=== PATIENT | female | born 1940 | race Caucasian/White ===

== ENCOUNTER 2017-02-25 10:50 | Inpatient (IN) ==
[2017-02-25] MEDS ORDERED: *HR* Heparin 5,000 UNIT/ML VIAL IVP ONE (11:07)
[2017-02-25] MEDS ORDERED: *HR* Heparin 5,000 UNIT/ML VIAL IVP PRN ×3 (11:07→15:48)
--- NOTE | 2017-02-25 11:14 | Emergency Department Note ---
Disposition Clinical Impression: Atrial fibrillation with RVR, Cardiac enzymes elevated, Renal insufficiency Disposition: Admitted As Inpatient Condition: Fair Referrals: Kingsley Guerrero DO [Primary Care Provider] - Forms: ED Satisfaction Letter Time of Disposition: 12:20 Arrhythmia/Palpitations HPI - General Chief Complaint: ED Arrhythmia/Palpitations Stated Complaint: high heart rate/ swelling Time Seen by Provider: 02/25/17 11:03 Source: patient Limitations: no limitations Nursing Notes Reviewed: Yes Vital Signs Reviewed: Yes - Related Data Allergies Allergy/AdvReac Type Severity Reaction Status Date / Time amlodipine [From Norvasc] AdvReac See Verified 02/25/17 10:58 Comments ezetimibe [From Zetia] AdvReac See Verified 02/25/17 10:58 Comments Past Medical History - Past Medical History Medical history: Reports: CHF, hyperlipidemia, hypertension Psychiatric history: Reports: no psych history - Social History Smoking Status: Never smoker Smokeless Tobacco Status: No Alcohol use: Reports: none Drug use: Reports: none Physical Exam - General Limitations: no limitations General appearance: alert, in no apparent distress Course - Reevaluation(s) Reevaluation #1: 76-year-old with mitral regurgitation who comes in with acute onset A. fib. With rapid ventricular response. Patient was seen by cardiology sent here for heparin and Cardizem drip. Patient's troponin did come back positive at 0.19. Patient does have renal insufficiency which is stable compared to her previous value. Patient will be admitted for further evaluation and treatment. Time: 12:18 - Consultations Consultation #1: Discussed with , discussed troponin. Agrees with heparin and Cardizem. Time: 12:17 Consultation #2: Discussed with , admit. Time: 12:18 Vital Signs Temperature 97.5 F L 02/25/17 10:51 Pulse Rate 148 02/25/17 10:51 Respiratory Rate 18 02/25/17 10:51 Blood Pressure 91/50 02/25/17 10:51 O2 Sat by Pulse Oximetry 95 02/25/17 10:51 Temperature 97.5 F L 02/25/17 10:51 Pulse Rate 140 02/25/17 11:45 Respiratory Rate 16 02/25/17 11:45 Blood Pressure 122/77 02/25/17 11:45 O2 Sat by Pulse Oximetry 98 02/25/17 11:45 Oxygen Delivery Oxygen Delivery Room Air Arrhythmia/Palpitations - Lab Data Result diagrams: 02/25/17 11:12 02/25/17 11:12 Lab Results 02/25/17 02/25/17 02/25/17 Range/Units 11:12 11:12 11:12 WBC 7.6 (4.3-11.1) K/mcL RBC 3.70 L (3.82-4.97) M/mcL Hgb 10.3 L (11.5-15.4) g/dL Hct 32.8 L (35.3-44.9) % MCV 88.6 (83.0-100.0) fL MCH 27.8 L (28.0-33.3) pg MCHC 31.4 L (31.6-35.5) g/dL RDW 14.8 H (11.5-14.5) % Plt Count 148 (140-400) K/mcL MPV 12.1 (9.4-12.4) fL Immature Gran % 0.3 (0-4) % Seg Neutrophils % 82.6 % Lymphocytes % 9.4 % Monocytes % 7.3 % Eosinophils % 0.1 % Basophils % 0.3 % Neutrophils # 6.3 (1.6-8.9) K/mcL Lymphocytes # 0.7 (0.6-4.6) K/mcL Monocytes # 0.6 (0.0-1.3) K/mcL Eosinophils # 0.0 (0.0-0.6) K/mcL Basophils # 0.0 (0.0-0.2) K/mcL PT 14.3 H (9.4-12.1) Seconds INR 1.3 APTT 24.3 L (26.0-36.0) Seconds Sodium 136 (136-145) mEq/L Potassium 4.4 (3.5-4.5) mEq/L Chloride 102 (98-109) mEq/L Carbon Dioxide 22 (19-29) mEq/L BUN 56 H (7-20) mg/dL Creatinine 1.76 H (0.57-1.11) mg/dL Est GFR ( Amer) 34 L (> 60) Est GFR (Non-Af Amer) 28 L (> 60) BUN/Creatinine Ratio 32 H (6-26) Glucose 107 H (70-99) mg/dL Calculated Osmolality 298 (280-300) Calcium 9.2 (8.6-10.8) mg/dL Troponin I (0-0.03) ng/mL TSH 4.151 (0.350-4.840) mcIU/mL 02/25/17 Range/Units 11:12 WBC (4.3-11.1) K/mcL RBC (3.82-4.97) M/mcL Hgb (11.5-15.4) g/dL Hct (35.3-44.9) % MCV (83.0-100.0) fL MCH (28.0-33.3) pg MCHC (31.6-35.5) g/dL RDW (11.5-14.5) % Plt Count (140-400) K/mcL MPV (9.4-12.4) fL Immature Gran % (0-4) % Seg Neutrophils % % Lymphocytes % % Monocytes % % Eosinophils % % Basophils % % Neutrophils # (1.6-8.9) K/mcL Lymphocytes # (0.6-4.6) K/mcL Monocytes # (0.0-1.3) K/mcL Eosinophils # (0.0-0.6) K/mcL Basophils # (0.0-0.2) K/mcL PT (9.4-12.1) Seconds INR APTT (26.0-36.0) Seconds Sodium (136-145) mEq/L Potassium (3.5-4.5) mEq/L Chloride (98-109) mEq/L Carbon Dioxide (19-29) mEq/L BUN (7-20) mg/dL Creatinine (0.57-1.11) mg/dL Est GFR ( Amer) (> 60) Est GFR (Non-Af Amer) (> 60) BUN/Creatinine Ratio (6-26) Glucose (70-99) mg/dL Calculated Osmolality (280-300) Calcium (8.6-10.8) mg/dL Troponin I 0.19 H* (0-0.03) ng/mL TSH (0.350-4.840) mcIU/mL Critical Care Time Critical Care Time: Yes Total Critical Care Time: 30 Attestation: The high probability of a clinically significant, sudden or life threatening deterioration of the [cardiovascular] system(s) required my full and direct attention, intervention and personal management. The aggregate critical care time was [30] minutes. This time is in addition to time spent performing reported procedures but includes the following: [x] Data Review and interpretation [x] Patient assessment and monitoring of vital signs [x] Documentation [x] Medication orders and management
[2017-02-25 11:26] LABS: Basophils % 0.3 %; Eosinophils % 0.1 %; Hematocrit 32.8 % (35.3-44.9); Hemoglobin 10.3 g/dL (11.5-15.4); Immature Granulocytes % 0.3 % (0-4); Lymphocytes # 0.7 K/mcL (0.6-4.6); Lymphocytes % 9.4 %; Mean Corpuscular HGB Conc 31.4 g/dL (31.6-35.5); Mean Corpuscular Hemoglobin 27.8 pg (28.0-33.3); Mean Corpuscular Volume 88.6 fL (83.0-100.0); Mean Platelet Volume 12.1 fL (9.4-12.4); Monocytes # 0.6 K/mcL (0.0-1.3); Monocytes % 7.3 %; Neutrophils # 6.3 K/mcL (1.6-8.9); Platelet Count 148 K/mcL (140-400); Red Cell Distribution Width 14.8 % (11.5-14.5); Segmented Neutrophils % 82.6 %
[2017-02-25 11:31] LABS: INR 1.3; Prothrombin Time 14.3 Seconds (9.4-12.1)
[2017-02-25 11:33] LABS: Activated Partial Thrombo Time 24.3 Seconds (26.0-36.0)
[2017-02-25 11:34] LABS: Calcium 9.2 mg/dL (8.6-10.8); Potassium 4.4 mEq/L (3.5-4.5)
[2017-02-25] MEDS: Heparin 25,000 UNIT/500 ML D5W 25,000 UNIT/500 ML MLS IVC SCH (11:45)
[2017-02-25 11:56] LABS: Thyroid Stimulating Hormone 4.151 mcIU/mL (0.350-4.840)
[2017-02-25] MEDS ORDERED: Naloxone 0.4 MG/ML INJ IVP PRN (12:41)
[2017-02-25] MEDS ORDERED: Acetaminophen 325 MG TABLET PO PRN (12:41)
--- NOTE | 2017-02-25 13:25 | Internal Med History&Physical ---
Date of Encounter: 02/25/17 Time of Encounter: 13:22 Assessment and Plan (1) Atrial fibrillation with RVR Current visit: Yes Status: Acute New onset, was seen by case hardener on day of admission and found to be in A. fib with RVR. Heart rates in 130s in the ED, Cardizem drip and heparin drip started. TTE 01/2017 with EF 55% and severely dilated left atrium. TSH normal, troponin 0.19. Discussed with cardiology and patient has known mitral regurg, possible LOBITO tomorrow with possible LHC this admission to evaluate for ischemic etiology. Continue Cardizem, heparin drip. Cardiology following (2) Renal insufficiency Current visit: Yes Status: Acute Cr 1.7; baseline normal, creatinine has been trending up since 02/12/2017. Suspect multifactorial with diuretic induced, possible cardiorenal syndrome. Holding on diuresis and fluids at this time. Nephrology consult, renal ultrasound pending (3) Diastolic CHF Current visit: Yes Status: Acute TTE 01/2017 with EF 55%, and evidence of diastolic dysfunction. Was on by mouth Lasix outpatient with no proven noted in lower extremity edema. Chest x-ray with evidence of CHF and bilateral pleural effusions. Discussed with cardiology and will hold on repeating echo at this time. Also holding on diuresis with worsening STEPHEN. Cardiology consulted Qualifiers: Congestive heart failure chronicity: acute on chronic Qualified Code(s): I50.33 - Acute on chronic diastolic (congestive) heart failure (4) Cardiac enzymes elevated Current visit: Yes Status: Acute troponin 0.19 and in the setting of STEPHEN, a-fib with RVR. Denies chest pain. EKG with A. fib RVR. Cycle troponin, cardiology consult (5) Essential hypertension Current visit: Yes Status: Acute per hx but not taking BP medications. BP stable in ED. Monitor BP and initiate antihypertensive if needed. (6) DVT prophylaxis Current visit: Yes Status: Acute heparin gtt Internal Medicine - H&P: HPI History of present illness: Ms. Lazo is a 76 year old female Past Med Surg Social Fam HX - Past Medical History Medical history: CHF, hyperlipidemia, hypertension Psychiatric history: no psych history - Social History Smoking Status: Never smoker Smokeless Tobacco Status: No Alcohol use: none Drug use: none Internal Medicine - H&P: Meds Aspirin 81 mg PO DAILY 02/25/17 [History] Furosemide [Lasix] 40 mg PO DAILY 02/25/17 [History] Potassium Chloride [Klor-Con 10] 10 meq PO DAILY 02/25/17 [History] Ramipril [Altace] 10 mg PO QPM 02/25/17 [History] Ramipril [Altace] 20 mg PO QAM 02/25/17 [History] Rosuvastatin [Crestor] 40 mg PO HS 02/25/17 [History] Allergies amlodipine [From Norvasc] Adverse Reaction (Verified 02/25/17 10:58) See Comments swelling/leg cramps ezetimibe [From Zetia] Adverse Reaction (Verified 02/25/17 10:58) See Comments swelling/leg cramps All Systems PM: A 10-system review of systems was performed and is negative for pertinent findings except as documented above in the HPI. - Constitutional Vitals: Temp Pulse Resp BP Pulse Ox 97.5 F L 140 16 122/77 98 02/25/17 10:51 02/25/17 11:45 02/25/17 11:45 02/25/17 11:45 02/25/17 11:45 Internal Med - H&P Results - Labs CBC & Chem 7: 02/25/17 11:12 02/25/17 11:12 Labs: Short CBC 02/25/17 Range/Units 11:12 WBC 7.6 (4.3-11.1) K/mcL Hgb 10.3 L (11.5-15.4) g/dL Hct 32.8 L (35.3-44.9) % Plt Count 148 (140-400) K/mcL Neutrophils # 6.3 (1.6-8.9) K/mcL BMP 02/25/17 11:12 Sodium 136 Potassium 4.4 Chloride 102 Carbon Dioxide 22 BUN 56 H Creatinine 1.76 H Glucose 107 H Calcium 9.2 Cardiac Enzymes 02/25/17 Range/Units 11:12 Troponin I 0.19 H* (0-0.03) ng/mL - Impressions ITS Impressions Chest X-Ray 02/25/17 11:04 IMPRESSION: Findings suggest congestive heart failure D/ / Armaan Glez MD / Armaan Glez MD Interpreting Provider: Armaan Glez MD
--- NOTE | 2017-02-25 13:37 | Internal Med History&Physical ---
<Kent,Jessica J - Last Filed: 02/25/17 13:35> Date of Encounter: 02/25/17 Time of Encounter: 13:35 Assessment and Plan (1) Atrial fibrillation with RVR Current visit: Yes Status: Acute New onset, was seen by medical lead on day of admission and found to be in A. fib with RVR. Heart rates in 130s in the ED, Cardizem drip and heparin drip started. TTE 01/2017 with EF 55% and severely dilated left atrium. TSH normal, troponin 0.19. Discussed with cardiology and patient has known mitral regurg, possible LOBITO tomorrow with possible LHC this admission to evaluate for ischemic etiology. Continue Cardizem, heparin drip. Cardiology following (2) Renal insufficiency Current visit: Yes Status: Acute (2) Renal insufficiency Current visit: Yes Status: Acute Cr 1.7; baseline normal, but Cr has been trending up since 02/12/2017. Suspect multifactorial with diuretic induced, possible cardiorenal syndrome. Holding on diuresis and fluids at this time. Nephrology consult, renal ultrasound pending (3) Diastolic CHF Current visit: Yes Status: Acute TTE 01/2017 with EF 55%, and evidence of diastolic dysfunction. Was on by mouth Lasix outpatient with no proven noted in lower extremity edema. Chest x-ray with evidence of CHF and bilateral pleural effusions. Discussed with cardiology and will hold on repeating echo at this time. Also holding on diuresis with worsening STEPHEN. Cardiology consulted Qualifiers: Congestive heart failure chronicity: acute on chronic Qualified Code(s): I50.33 - Acute on chronic diastolic (congestive) heart failure (4) Cardiac enzymes elevated Current visit: Yes Status: Acute troponin 0.19 and in the setting of STEPHEN, a-fib with RVR. Denies chest pain. EKG with A. fib RVR. Cycle troponin, cardiology consult (5) Essential hypertension Current visit: Yes Status: Acute per hx but not taking BP medications. BP stable in ED. Monitor BP and initiate antihypertensive if needed. (6) DVT prophylaxis Current visit: Yes Status: Acute heparin gtt Internal Medicine - H&P: HPI Chief complaint: leg swelling Admitted From: Home History of present illness: Ms. Lazo is a 76 year old female with past medical history hypertension, hyperlipidemia and diastolic dysfunction who was seen a medical lead office on day of admission. She was found to be in A. fib with RVR therefore she was sent to the emergency room. She was started on Cardizem and heparin drip and admitted for further workup and treatment. Information obtained from chart review and patient report. Patient says she has Been having lower extremity edema for the past 2 or 3 weeks, has been following cardiology for outpatient workup. She was taking up to 60 mg of by mouth Lasix at home without noticing any difference in her lower extremity edema. She denies shortness of breath no chest pain or cough. Says she has felt intermittent palpitations, has not been diagnosed with A. fib in the past. No lightheadedness or dizziness. Past Med Surg Social Fam HX - Past Medical History Medical history: CHF, hyperlipidemia, hypertension Psychiatric history: no psych history - Past Surgical History Surgical History: non-contributory - Social History Smoking Status: Never smoker Smokeless Tobacco Status: No Alcohol use: none Drug use: none - Family History Mother Hx Family Endocrine Disorder: Yes (diabetes) Internal Medicine - H&P: Meds Aspirin 81 mg PO DAILY 02/25/17 [History] Furosemide [Lasix] 40 mg PO DAILY 02/25/17 [History] Potassium Chloride [Klor-Con 10] 10 meq PO DAILY 02/25/17 [History] Ramipril [Altace] 10 mg PO QPM 02/25/17 [History] Ramipril [Altace] 20 mg PO QAM 02/25/17 [History] Rosuvastatin [Crestor] 40 mg PO HS 02/25/17 [History] Allergies amlodipine [From Norvasc] Adverse Reaction (Verified 02/25/17 10:58) See Comments swelling/leg cramps ezetimibe [From Zetia] Adverse Reaction (Verified 02/25/17 10:58) See Comments swelling/leg cramps All Systems PM: A 10-system review of systems was performed and is negative for pertinent findings except as documented above in the HPI. - Constitutional Constitutional: no chills, no fever(s), no night sweats - EENT Eyes: no change in vision, no discharge, no pain, no photophobia Ears: no ear discharge, no ear pain, no tinnitus Nose, mouth and throat: no dysphagia, no nasal discharge, no neck pain, no sore throat - Cardiovascular Cardiovascular ROS IM: edema, palpitations, no chest pain, no diaphoresis, no dyspnea, no lightheadedness, no syncope - Respiratory Respiratory: no cough, no dyspnea, no wheezing, no excessive phlegm production - Gastrointestinal Gastrointestinal: no abdominal pain, no diarrhea, no hematemesis, no hematochezia, no melena, no nausea, no vomiting - Genitourinary Genitourinary: no change in urinary stream, no dysuria, no flank pain, no hematuria - Musculoskeletal Musculoskeletal ROS IM: no numbness, no tingling - Integumentary Integumentary IM: no rash, no unusual bruising - Neurological Neurological ROS: no confusion, no convulsions, no focal weakness, no numbness, no tingling, no tremor(s) - Hematologic/Lymphatic Hematologic/Lymphatic: no easy bruising - Constitutional Vitals: Temp Pulse Resp BP Pulse Ox 97.5 F L 138 16 115/83 97 02/25/17 10:51 02/25/17 12:30 02/25/17 12:30 02/25/17 12:30 02/25/17 12:30 General appearance: Present: A&O X 3, pleasant, no acute distress - Head Head exam: Present: atraumatic, normocephalic - Eye Eye exam: Present: PERRL, conjuntiva pink, sclera anicteric Pupils: Present: PERRL - Neck Neck exam general surgery: Present: supple, trachea midline. Absent: lymphadenopathy - Respiratory Respiratory exam: Present: CTAB. Absent: accessory muscle use, rales, rhonchi, wheezes - Cardiovascular Cardiovascular exam: Present: RRR, +S1, +S2. Absent: diastolic murmur, gallop, rubs, systolic murmur - GI/Abdominal GI/Abdominal exam: Present: normal bowel sounds, soft, no peritoneal signs. Absent: distended, tenderness - Extremities Exam Extremities exam: Present: warm, radial pulses palpable and symetrical. Absent : calf tenderness, cyanotic, pedal edema - Neurological Exam Neurological exam: Present: CN II-XII intact, oriented X3, no focal deficits. Absent: pronater drift, facial droop, speech deficit - Skin Skin exam: Present: dry, intact Internal Med - H&P Results - Labs CBC & Chem 7: 02/25/17 11:12 02/25/17 11:12 <Ameda,Srujan - Last Filed: 02/25/17 14:56> Date of Encounter: 02/25/17 Time of Encounter: 14:40 Internal Medicine - H&P: HPI History of present illness: Ms. Lazo is a 76 year old female All Systems PM: A 10-system review of systems was performed and is negative for pertinent findings except as documented above in the HPI. - Constitutional Vitals: Temp Pulse Resp BP Pulse Ox 97.9 F 130 16 109/83 96 02/25/17 14:13 02/25/17 14:13 02/25/17 14:13 02/25/17 14:13 02/25/17 14:13 Internal Med - H&P Results - Labs CBC & Chem 7: 02/25/17 11:12 02/25/17 11:12 - Attending Attestation I examined this patient and my medical decision-making was reviewed with the nurse practitioner. I agree with the documented history of present illness, review of systems, past medical, surgical social and family histories and examination findings, disposition and treatment plan as described above except to any changes set forth below. 76-year-old female patient with history of hypertension, hyperlipidemia who was visiting with her medical lead for the first time for follow-up regarding abnormal 2-D echocardiogram findings was found to be in rapid atrial fibrillation and was sent to the ER. She has been having occasional palpitations along with shortness of breath especially with exertion and some pedal edema. She had a 2-D echocardiogram done in January which showed severe mitral regurgitation. She denies any chest pain. Does not recollect having any issues with heart rhythm previously. Has had left carotid endarterectomy for carotid stenosis in the past but no episodes of TIA or CVA. On examination , patient has tachycardia with an irregularly irregular rhythm. Pansystolic murmur. Bilateral pedal edema present. Paroxysmal A. fib with RVR-new onset: Will treat with intravenous Cardizem. Cardiology evaluation. Trend troponins. Mild troponin elevation likely due to A. fib with STEPHEN. With IV heparin. Acute kidney injury: Patient has had normal renal function in September of this year but currently is creatinine is 1.76. Has been elevated since the beginning of this month. Was on Lasix 60 mg recently. But quit taking as it did not improve her symptoms. History of nephrolithiasis. We will get renal ultrasound. Nephrology consultation. Essential hypertension: Monitor blood pressure. Resume home medications. Severe mitral regurgitation with severely dilated left atrium: Cardiology consulted. We will follow recommendations. Plan for LOBITO.
--- NOTE | 2017-02-25 15:01 | Cardiology Consult Note ---
Date of Encounter: 02/25/17 Time of Encounter: 15:30 Assessment and Plan (1) Atrial fibrillation with RVR Current Visit: Yes Status: Acute Out-pt EKG shows atrial fibrillation with RVR. HR 149 bpm. New diagnosis. Reports palpitations over 1-2 weeks. On cardizem and heparin gtt. Titrate heparin as needed. Continue heparin for now until after possible procedures. CHADS VASc=3. Will need to discuss coumadin further after LHC completed. (2) Severe mitral regurgitation Current Visit: Yes Status: Acute Echocardiogram 01/27/17: LVEF 55%. Moderate LVH Abnormal diastolic function with severely elevated filling pressures. Normal right ventricular size and function. Severely dilated left atrium with elevated pressures (bowing of IAS to right). Severe wrap around eccentric mitral regurgitation. Mild aortic regurgitation. Moderate tricuspid regurgitation. Severe pulmonary hypertension. A pleural effusion is present. Plan for LOBITO and LHC once heart rate and fluid status improves for further evaluation. I discussed procedures with patient and daughters. They agree with plan. (3) Cardiac enzymes elevated Current Visit: Yes Status: Acute Mild troponin elevation at 0.19 in the setting of CHF and atrial fibrillation with RVR. Likely demand ischemia. (4) Diastolic CHF Current Visit: Yes Status: Acute Acute diastolic /valvular CHF. Echocardiogram 01/27/17: LVEF 55%. Moderate LVH Abnormal diastolic function with severely elevated filling pressures. Normal right ventricular size and function. Severely dilated left atrium with elevated pressures (bowing of IAS to right). Severe wrap around eccentric mitral regurgitation. Mild aortic regurgitation. Moderate tricuspid regurgitation. Severe pulmonary hypertension. A pleural effusion is present. CXR shows CHF. BNP 1447. Fluid overload on exam. Start IV lasix. Monitor BMP. Kidney function will likely improve with diuresis. Strict I&O and daily weight. Low sodium diet. Qualifiers: Congestive heart failure chronicity: acute on chronic Qualified Code(s): I50.33 - Acute on chronic diastolic (congestive) heart failure Discussion w patient/family: The assessment and plan as outlined above was discussed with the patient and/or family members who expressed understanding and agreement. All questions were answered. Thank you for involving us in the care of your patient. Please call with any questions. History of Present Illness Consult date: 02/25/17 Requesting physician: Yulissa Lewis Consult reason: CHF, Severe mitral regurgitation, new onset afib Chief complaint: SOB History of present illness: Ms. Lazo is a 76 year old female sent from [facility] to the ER for new onset atrial fibrillation with RVR, HR 140, and CHF. Recent TTE completed showed severe wrap around eccentric mitral regurgiation. EF 55%. Initial work- up included chest x-ray that shows CHF. [id number], troponin 0.19. STEPHEN since 2016. Creatinine 1.76 today. She c/o SOB and BLE increasing over one week despite taking lasix at home. Admits to palpitations. PMH of Echocardiogram 01/27/17: LVEF 55%. Moderate LVH Abnormal diastolic function with severely elevated filling pressures. Normal right ventricular size and function. Severely dilated left atrium with elevated pressures (bowing of IAS to right). Severe wrap around eccentric mitral regurgitation. Mild aortic regurgitation. Moderate tricuspid regurgitation. Severe pulmonary hypertension. A pleural effusion is present. Past Med Surg Social Fam HX - Past Medical History Medical history: CHF, hyperlipidemia, hypertension Psychiatric history: no psych history - Past Surgical History Surgical History: non-contributory - Social History Smoking Status: Never smoker Smokeless Tobacco Status: No Alcohol use: none Drug use: none - Family History Mother Hx Family Endocrine Disorder: Yes (diabetes) Father Living Status: Age at : 58 Cause of : [place] Medications and Allergies Aspirin 81 mg PO DAILY 02/25/17 [History] Furosemide [Lasix] 40 mg PO DAILY 02/25/17 [History] Potassium Chloride [Klor-Con 10] 10 meq PO DAILY 02/25/17 [History] Ramipril [Altace] 10 mg PO QPM 02/25/17 [History] Ramipril [Altace] 20 mg PO QAM 02/25/17 [History] Rosuvastatin [Crestor] 40 mg PO HS 02/25/17 [History] Allergies amlodipine [From Norvasc] Adverse Reaction (Verified 02/25/17 10:58) See Comments swelling/leg cramps ezetimibe [From Zetia] Adverse Reaction (Verified 02/25/17 10:58) See Comments swelling/leg cramps All Systems Review: A 10-system review of systems was performed and is negative for pertinent findings except as documented above in the HPI. Physical Examination Vital Signs, Last 4 Hours Temp Pulse Resp BP Pulse Ox 02/25/17 14:13 97.9 F 130 16 109/83 96 02/25/17 13:38 16 117/79 02/25/17 13:00 136 16 116/69 98 General: Conversant, No Apparent Distress HEENT: Atraumatic, Normocephaly, Mucus Membranes Moist Neck: Other (Mild JVD) Cardiac: Other (Irregularly irregular) Lungs: Other (respirations easy, diminished bases) Neuro: Alert and responsive, No focal deficits noted Abdomen: Soft, Non-Tender Skin: No rashes noted on visualized skin Musculoskeletal: No Chest Wall Tenderness Extremities: Other (2+ edema up to her knees) Results 02/25/17 11:12 02/25/17 11:12 - Imaging and Cardiology Echo: report reviewed ( Echocardiogram 01/27/17: Impressions: LVEF 55%. Moderate concentric left ventricular hypertrophy. Abnormal diastolic function with severely elevated filling pressures. Normal right ventricular size and function. Severely dilated left atrium with elevated pressures (bowing of IAS to right). Severe wrap around eccentric mitral regurgitation. Mild aortic regurgitation. Moderate tricuspid regurgitation. Severe pulmonary hypertension. A pleural effusion is present.) Consult Discharge Plan - Plan Referrals: Kingsley Guerrero DO [Primary Care Provider] -
[2017-02-25] MEDS ORDERED: Furosemide 40 MG/4 ML VIAL IVP SCH (17:00)
--- NOTE | 2017-02-25 18:09 | Electrocardiograph Report ---
[place] [id number] Test Date: 2017-02-25 Pat Name: Barbara Lazo Department: 105 Room: [id number] Gender: F [employer]: : 1940 Requested By: Chau Tracy Order Number: [id number] Reading MD: Daniel Santos MD Measurements Intervals [place] Rate: 146 P: NE: 0 QRS: -57 QRSD: 124 T: 117 QT: 316 QTc: 400 Interpretive Statements ATRIAL FIBRILLATION WITH RAPID VENTRICULAR RESPONSE RIGHT BUNDLE BRANCH BLOCK LEFT ANTERIOR FASCICULAR BLOCK Electronically Signed On 02-25-2017 18:08:23 EDT by Daniel Santos MD
[2017-02-25] MEDS: Furosemide 40 MG/4 ML VIAL IVP SCH (21:26)
[2017-02-25 22:46] LABS: Bilirubin,Urine Negative (Negative); Blood,Urine Trace (Negative); Clarity,Urine Clear (Clear); Color,Urine Yellow (Yellow); Glucose,Urine (UA) Normal (Normal); Ketones,Urine Negative (Negative); Leukocyte Esterase,Urine Small (Negative); Nitrite,Urine Negative (Negative); PH,Urine 5.5 pH Units (5.0-8.0); Protein,Urine Trace mg/dL (Neg-Trace); Specific Gravity,Urine 1.018 (1.010-1.025); Urobilinogen,Urine Normal (Normal)
[2017-02-25 22:49] LABS: Bacteria,Urine None Seen per hpf (None-Few); Hyaline Casts,Urine None Seen per lpf (None-Few); Squamous Epithelial Cell,Urine Many per lpf (None-Few)
[2017-02-25 23:01] LABS: RBC,Urine 0-3 per hpf (0-3)
[2017-02-26 01:54] LABS: Basophils % 0.5 %; Eosinophils % 0.2 %; Hematocrit 29.1 % (35.3-44.9); Hemoglobin 9.3 g/dL (11.5-15.4); Immature Granulocytes % 0.5 % (0-4); Lymphocytes # 0.7 K/mcL (0.6-4.6); Lymphocytes % 9.9 %; Mean Corpuscular Hemoglobin 28.3 pg (28.0-33.3); Mean Corpuscular Volume 88.4 fL (83.0-100.0); Mean Platelet Volume 12.5 fL (9.4-12.4); Monocytes # 0.5 K/mcL (0.0-1.3); Monocytes % 7.9 %; Neutrophils # 5.3 K/mcL (1.6-8.9); Platelet Count 140 K/mcL (140-400); Red Blood Count 3.29 M/mcL (3.82-4.97); Red Cell Distribution Width 14.9 % (11.5-14.5)
[2017-02-26 01:59] LABS: Albumin 3.2 g/dL (3.5-5.0); Bilirubin,Total 0.8 mg/dL (0.2-1.2); Calcium 8.6 mg/dL (8.6-10.8); Globulin 3.1 g/dL (2.4-3.5); Potassium 3.4 mEq/L (3.5-4.5); Total Protein 6.3 g/dL (6.0-8.3)
--- NOTE | 2017-02-26 07:19 | Venous Imaging Report ---
LE Venous Duplex Patient Name:Barbara Lazo Order Number:[id number] Procedure Date:02/25/2017 Date:1940ge:76 yrs Gender:Female Location:[facility] Room #: 2NE33 Fly Worker:Lorie Rosado Referring MD:Jessica Kent CNP customer success intern:DO Galen Livingston MD:Deshaun Bolaños MD Primary Indications:LE edema Secondary Indications: Impressions: Acute deep venous thrombosis is present in the right common femoral through superficial femoral veins. Acute superficial venous thrombosis is present in the right greater saphenous vein. Acute deep venous thrombosis is present in the left common femoral through tibial veins. Acute superficial thrombosis is present in the left greater and lesser saphenous veins. Recommendations: Test completed on 02/25/2017 at 4:12:00 pm. Critical findings reported to PERLA Salazar in person at 4:15:00 pm on 02/25/2017 by Lorie Rosado. Findings Venous Duplex Results: Right: The right common femoral demonstrates a partially compressible vein. Flow was absent and it did not augment. The right superficial femoral demonstrates a partially compressible vein. Flow was absent and it did not augment. The right great saphenous above knee demonstrates an incompressible vein. Flow was absent and it did not augment. The right great saphenous below knee demonstrates an incompressible vein. Flow was absent and it did not augment. Left: The left common femoral demonstrates a partially compressible vein. Flow was absent and it did not augment. The left superficial femoral demonstrates an incompressible vein. Flow was absent and it did not augment. The left popliteal demonstrates an incompressible vein. Flow was absent and it did not augment. The left posterior tibial demonstrates a partially compressible vein. Flow was phasic and it did augment. The left peroneal demonstrates a partially compressible vein. Flow was phasic and it did augment. The left gastrocnemius demonstrates an incompressible vein. Flow was absent and it did not augment. The left great saphenous above knee demonstrates an incompressible vein. Flow was absent and it did not augment. The left great saphenous below knee demonstrates an incompressible vein. Flow was absent and it did not augment. The left lesser saphenous demonstrates an incompressible vein. Flow was absent and it did not augment. The left posterior tibial and left peroneal veins were not well visualized. Prior Study: No prior study available for comparison. Lower Extremity Venous Duplex Side Vein Compress Spontaneous Flow Augment Diameter (cm) Depth (cm) Right Distal Iliac Normal Yes Phasic Yes Right Common Femoral Partial no Absent no Right Superficial Femoral Partial no Absent no Right Popliteal Normal Yes Phasic Yes Right Posterior Tibial Normal Yes Phasic Yes Right Peroneal Normal Yes Phasic Yes Right Gastrocnemius Normal Yes Phasic Yes Right Saphenofemoral Junction Normal Yes Phasic Yes Right Great Saphenous [place] None no Absent no Right Great Saphenous BK None no Absent no Right Lesser Saphenous Normal Yes Phasic Yes Left Distal Iliac Normal Yes Phasic Yes Left Common Femoral Partial no Absent no Left Superficial Femoral None no Absent no Left Popliteal None no Absent no Left Posterior Tibial Partial Yes Phasic Yes Left Peroneal Partial Yes Phasic Yes Left Gastrocnemius None no Absent no Left Saphenofemoral Junction Normal Yes Phasic Yes Left Great Saphenous [place] None no Absent no Left Great Saphenous BK None no Absent no Left Lesser Saphenous None no Absent no Updated by Deshaun Bolaños MD on 02/26/2017 7:13:00 AM electronically signed on 02/26/2017 7:13:15 AM with status of Final
[2017-02-26] MEDS: Aspirin 81 MG TAB.CHEW PO SCH (08:14)
--- NOTE | 2017-02-26 10:56 | Nephrology Consult Note ---
Date of Encounter: 02/26/17 Time of Encounter: 10:51 Assessment and Plan (1) STEPHEN (acute kidney injury) Current Visit: Yes Status: Acute Renal ultrasound already done-shows mild chronic renal disease Agree with holding Lasix Will order urine sodium, urine creatinine, urine eosinophils, CPK, and serum uric acid level. If heart cath done will need protection measures such as Mucomyst ordered. Avoid nephrotoxins if possible Strict I/Os (2) Atrial fibrillation with RVR Current Visit: Yes Status: Acute per cardiology team (3) Diastolic CHF Current Visit: Yes Status: Acute per cardiology team Qualifiers: Congestive heart failure chronicity: acute on chronic Qualified Code(s): I50.33 - Acute on chronic diastolic (congestive) heart failure History of Present Illness - Reason for Consult Consult date: 02/26/17 Acute Kidney Injury - Chief Complaint afib with RVR, STEPHEN - History of Present Illness Ms. Lazo is a 76 year old female with past medical history hypertension, hyperlipidemia and diastolic dysfunction who was admitted with afib with RVR. She is on Cardizem drip and was found to have bilat DVT; heparin drip then started. Patient says she has been having lower extremity edema for the past 2 or 3 weeks and was taking Lasix at home without noticing any difference in her lower extremity edema. She states she stopped the Lasix several week ago and has not received any since admission. She denies shortness of breath no chest pain or cough. Patient denies any past kidney disease. States she only drinks a couple small cups of water with ice daily and her daughters state she has not been eating well the last few days. Cardiology is recommending LHC and LOBITO for patient. Scr was 1.76 yesterday and is now at 1.62; GFR has climbed from 28 to 31. Past Med Surg Social Fam HX - Past Medical History Medical history: CHF, hyperlipidemia, hypertension Psychiatric history: no psych history - Past Surgical History Surgical History: non-contributory - Social History Smoking Status: Never smoker Smokeless Tobacco Status: No Alcohol use: none Drug use: none - Family History Mother Living Status: Age at : 84 Cause of : stroke Hx Family Endocrine Disorder: Yes (diabetes) Father Living Status: Age at : 58 Cause of : ME Medications and Allergies Aspirin 81 mg PO DAILY 02/25/17 [History] Furosemide [Lasix] 40 mg PO DAILY 02/25/17 [History] Potassium Chloride [Klor-Con 10] 10 meq PO DAILY 02/25/17 [History] Ramipril [Altace] 10 mg PO QPM 02/25/17 [History] Ramipril [Altace] 20 mg PO QAM 02/25/17 [History] Rosuvastatin [Crestor] 40 mg PO HS 02/25/17 [History] Allergies amlodipine [From Norvasc] Adverse Reaction (Verified 02/25/17 10:58) See Comments swelling/leg cramps ezetimibe [From Zetia] Adverse Reaction (Verified 02/25/17 10:58) See Comments swelling/leg cramps Review of Systems All Systems: reviewed and no additional remarkable complaints except as stated Constitutional: no chills, no fever(s) Cardiovascular: edema, leg edema, palpitations, no chest pain Respiratory: no cough Musculoskeletal: no arthralgias Neurological: no behavioral changes, no convulsions Exam - Vital Signs Vital signs: Initial Vital Signs Temp Pulse Resp BP Pulse Ox 97.5 F L 148 18 91/50 95 02/25/17 10:51 02/25/17 10:51 02/25/17 10:51 02/25/17 10:51 02/25/17 10:51 Vital Signs - Last 8 Hours Temp Pulse Resp BP Pulse Ox 02/26/17 10:45 106 18 100/70 02/26/17 07:35 99 18 90/60 02/26/17 07:34 97.6 F 84 16 99/67 94 02/26/17 05:44 97.5 F L 96 17 98/74 95 Intake and Output 02/25/17 02/26/17 02/26/17 23:59 07:59 15:59 Intake Total 100 / 100 25 / 25 Output Total 350 / 350 200 / 200 Balance -250 / -250 -200 / -200 25 / 25 Intake: IV Fluids 100 / 100 25 / 25 Cardizem 125 MG In 25 / 25 Dextrose 5% 100 ML @ 5 MG /HR 5 mls/hr IVC .Q24H [facility] Rx#:[id number] Heparin 25,000 UNIT/500 100 / 100 ML D5W 25,000 unit In 500 ml @ 14 UNIT/KG/HR 18.67 mls/hr IVC .Q24H [facility] Rx# :[id number] Oral 0 / 0 Output: Urine 350 / 350 200 / 200 Other: # Voids 0 Weight 66.4 kg Patient Weight 02/26/17 23:59 Weight 66.4 kg - General Appearance General appearance: well-developed, well-nourished EENT: ATNC, mucous membranes moist, hearing intact, vision intact Neck: supple Respiratory: clear Cardiology: edema (pitting BLL edema), normal S1, normal S2 Integumentary: warm and dry Neurologic: alert and oriented x3 Psychiatric: mood/affect appropriate, cooperative Results - Lab Results 02/26/17 01:09 02/26/17 01:09 Most recent lab results Calcium 8.6 mg/dL (8.6-10.8) 02/26/17 01:09 Consult Discharge Plan - Plan Referrals: Kingsley Guerrero DO [Primary Care Provider] - 03/06/17 11:30 am
--- NOTE | 2017-02-26 11:05 | Cardiology Progress Note ---
Date of Encounter: 02/26/17 Time of Encounter: 08:30 Assessment and Plan (1) Atrial fibrillation with RVR Current Visit: Yes Status: Acute Per cardiology: -Out-pt EKG shows atrial fibrillation with RVR. HR 149 bpm. -New diagnosis. Reports palpitations over 1-2 weeks. -On cardizem and heparin gtt. -Continue heparin for now until after possible procedures. -CHADS VASc=3. Will need to discuss coumadin further after LHC completed. Patient will need coumadin due to severe MR. -Telemetry reviewed with average HR 106, atrial fibrillation previous 12 hours. -BP 90s systolic. -Per discussion with will stop cardizem drip. Will start toprol. -Will continue to monitor. (2) Cardiac enzymes elevated Current Visit: Yes Status: Acute Per cardiology: -Mild troponin elevation at 0.19 in the setting of CHF and atrial fibrillation with RVR. -Troponins flat and adynamic 0.19, 0.16, 0.15 -Denies chest pain. -ECG with no ischemic changes. -Will plan for LHC when volume status and creatinine improve. (3) Diastolic CHF Current Visit: Yes Status: Acute Per cardiology; -Acute diastolic /valvular CHF. -Echocardiogram 01/27/17: LVEF 55%. Moderate LVH Abnormal diastolic function with severely elevated filling pressures. Normal right ventricular size and function. Severely dilated left atrium with elevated pressures (bowing of IAS to right). Severe wrap around eccentric mitral regurgitation. Mild aortic regurgitation. Moderate tricuspid regurgitation. Severe pulmonary hypertension. A pleural effusion is present. -CXR shows CHF. BNP 1447. -Fluid overload on exam. -On IV lasix. -Strict I&O and daily weight. -Low sodium diet. -Net negative 430ml this admisison. -Weight September noted to be 144.2 pounds. Current weight 146 pounds. -Will continue to monitor. Qualifiers: Congestive heart failure chronicity: acute on chronic Qualified Code(s): I50.33 - Acute on chronic diastolic (congestive) heart failure (4) Severe mitral regurgitation Current Visit: Yes Status: Acute Per cardiology: -Echocardiogram 01/27/17: LVEF 55%. Moderate LVH Abnormal diastolic function with severely elevated filling pressures. Normal right ventricular size and function. Severely dilated left atrium with elevated pressures (bowing of IAS to right). Severe wrap around eccentric mitral regurgitation. Mild aortic regurgitation. Moderate tricuspid regurgitation. Severe pulmonary hypertension. A pleural effusion is present. -Plan for LHC and subsequent LOBITO once heart rate and fluid status improves for further evaluation. -Discussed with patient and daughter. (5) Deep vein thrombosis (DVT) of both lower extremities Current Visit: Yes Status: Acute Per cardiology: -Bilateral DVTs per venous duplex. -On heparin drip. -Will order VQ scan to assess for PEs. -Will continue to monitor. Qualifiers: Affected thrombotic vein of extremity: femoral Chronicity: acute Qualified Code(s): I82.413 - Acute embolism and thrombosis of femoral vein, bilateral (6) STEPHEN (acute kidney injury) Current Visit: Yes Status: Acute Per cardiology: -Baseline creatinine 0.9-1. -Creatinine today 1.62. -Nephrology following. -Will plan for LHC when creatinine improves. -Managment per primary and nephrology services. -Will continue to monitor. Discussion w patient/family: The assessment and plan as outlined above was discussed with the patient and/or family members who expressed understanding and agreement. All questions were answered. Thank you for involving us in the care of your patient. Please call with any questions. Discussed and reviewed with . Subjective Principal diagnosis: atrial fibrillation with RVR Interval history: Sent from [facility] to the ER for new onset atrial fibrillation with RVR, HR 140, and CHF. Recent TTE completed showed severe wrap around eccentric mitral regurgiation. EF 55%. Initial work-up included chest x-ray that shows CHF. [id number], troponin 0.19. STEPHEN since 02/12/2017. She c/o SOB and BLE increasing over one week despite taking lasix at home. Admits to palpitations. Patient states breathing is better today. Patient reports swelling is worse today. Patient states she generally does not feel well. Objective Vital Signs, Last 4 Hours Temp Pulse Resp BP Pulse Ox 02/26/17 10:45 106 18 100/70 02/26/17 07:35 99 18 90/60 02/26/17 07:34 97.6 F 84 16 99/67 94 General: Conversant, No Apparent Distress HEENT: Atraumatic, Normocephaly, Mucus Membranes Moist Neck: No JVD, Normal carotid pulses Cardiac: Normal S1 and S2, Other (Irregularly, irregular, Systolic murmur noted. ) Lungs: Normal Breath Sounds, No Wheeze, Rales, Rhonchi Neuro: Alert and responsive, No focal deficits noted Abdomen: Soft, Non-Tender Skin: No rashes noted on visualized skin Musculoskeletal: No Chest Wall Tenderness Extremities: No Clubbing, No Cyanosis, Normal Pulses, Other (2+ bilateral lower extremity pitting edema. ) Results 02/26/17 01:09 02/26/17 01:09 Lab Results Impressions Retroperitoneum Ultrasound 02/26/17 08:30 IMPRESSION: Findings compatible with mild chronic medical renal disease. No hydronephrosis or other acute process is seen involving either kidney. D/ / Lio Arnold MD / Lio Arnold MD Interpreting Provider: Lio Arnold MD Active Medications Acetaminophen (Tylenol) 650 mg PO Q6HR PRN PRN Reason: Mild Pain (1-3) Stop: 08/27/17 12:42 Aspirin (Aspirin) 81 mg PO DAILY [facility] Stop: 08/28/17 09:01 Last Admin: 02/26/17 08:14 Dose: 81 mg Furosemide (Lasix) 40 mg IVP BIDDIURETIC [facility] Stop: 08/27/17 14:31 Last Admin: 02/25/17 21:26 Dose: Not Given Heparin Sodium (Porcine) (Heparin) 4,700 unit 70 unit/kg (4700 unit) IVP Q6HR PRN PRN Reason: SEE COMMENTS Stop: 08/27/17 11:08 Heparin Sodium (Porcine) (Heparin) 2,300 unit 35 unit/kg (2300 unit) IVP Q6HR PRN PRN Reason: SEE COMMENTS Stop: 08/27/17 11:08 Heparin Sodium/Dextrose (Heparin 25,000 Unit/500 Ml D5w) 25,000 unit in 500 mls @ 18.67 mls/hr IVC .Q24H A[facility]ER; 14 UNIT/KG/HR PRN Reason: Protocol Stop: 08/27/17 11:16 Last Titration: 02/25/17 18:22 Dose: 14 unit/kg/hr, 18.67 mls/hr Metoprolol Succinate (Toprol Xl) 12.5 mg PO DAILY [facility] Stop: 08/28/17 12:01 Naloxone HCl (Narcan) 0.4 mg IVP Q2MIN PRN PRN Reason: Opioid Reversal Stop: 08/27/17 12:42 Rosuvastatin Calcium (Crestor) 40 mg PO HS [facility] Stop: 08/27/17 21:01 Last Admin: 02/25/17 19:54 Dose: 40 mg Laboratory Tests 10/09/15 09/15/16 02/12/17 13:03 11:53 14:59 Hgb Potassium Creatinine 1.00 1.02 1.53 H Troponin I B-Natriuretic Peptide TSH 02/17/17 02/25/17 02/25/17 15:57 11:12 11:12 Hgb 10.3 L Potassium 4.4 Creatinine 1.80 H 1.76 H Troponin I B-Natriuretic Peptide TSH 4.151 02/25/17 02/25/17 02/25/17 11:12 11:19 17:22 Hgb Potassium Creatinine Troponin I 0.19 H* 0.16 H* B-Natriuretic Peptide 1474 H TSH 02/26/17 02/26/17 02/26/17 01:09 01:09 01:09 Hgb 9.3 L Potassium 3.4 L D Creatinine 1.62 H Troponin I 0.15 H* B-Natriuretic Peptide TSH - Imaging and Cardiology Chest Xray: report reviewed Echo: report reviewed Other Results: Venous duplex report reviewed - EKG Interpretation EKG results cardiology: personally reviewed (ECG with atrial fibrillation with RVR, HR 146.), other (Telemetry reviewed with average HR previous 12 hours noted to be 107, atrial fibrillation. PVCs and couplets noted.) Consult Discharge Plan - Plan Referrals: Kingsley Guerrero DO [Primary Care Provider] - 03/06/17 11:30 am
[2017-02-26 11:52] LABS: Uric Acid 11.4 mg/dL (2.6-6.0)
[2017-02-26] MEDS ORDERED: Albumin 25% 25gram/100mL 25 GM/100 ML IV.SOLN IVPB ONE (12:21)
[2017-02-26] MEDS: Heparin 25,000 UNIT/500 ML D5W 25,000 UNIT/500 ML MLS IVC SCH (12:22)
[2017-02-26] MEDS: Furosemide 40 MG/4 ML VIAL IVP SCH ×2 (12:30→17:15)
[2017-02-26] MEDS: Metoprolol XL (24 HR) Succ 25 MG TAB.ER.24H PO SCH (12:35)
[2017-02-26 12:49] LABS: Albumin 3.4 g/dL (3.5-5.0)
--- NOTE | 2017-02-26 14:40 | Internal Med Progress Note ---
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 fib with RVR with heart rate in the 140s. Is a new diagnosis of atrial fibrillation , the patient reports having some palpitations prior to presentation. She was started on Cardizem and heparin drips in the emergency room. There have been concerns of hypotension the diltiazem drip and cardio is considering changing her medication for rate control, but will defer to their judgment. Behavioral Medical Director consulted, appreciate recommendations for continued management/Care Continue Cardizem drip Continue heparin drip Due to concerns of mitral regurgitation causing valvular atrial fibrillation, patient will need Coumadin long-term continue modification to cardiac telemetry (2) Cardiac enzymes elevated Current Visit: Yes Status: Acute Assessment and plan: Patient presents with mildly elevated troponins at presentation. 0.19, 0.16, 0.15 since admission in the setting of A. fib with RVR and CHF. Troponin remained adynamic and likely source from other processes. Patient is chest pain -free and no ischemic changes seen on EKG. Cardiology is consulted to assist with A. fib with RVR as well as evaluate for clavicular troponins Plan for left heart catheterization when improvement in kidney function seen (3) Deep vein thrombosis (DVT) of both lower extremities Current Visit: Yes Status: Acute Assessment and plan: Bilateral DVTs observed on venous Doppler lower extremities. Patient on heparin drip currently, unable to evaluate for potential PE due to concerns of patient inability to lie down and decreased renal function preventing CT with contrast. Continue heparin drip Patient will need long-term anticoagulation as outpatient, Coumadin given patient likely valvular atrial fibrillation Qualifiers: Affected thrombotic vein of extremity: femoral Chronicity: acute Qualified Code(s): I82.413 - Acute embolism and thrombosis of femoral vein, bilateral (4) STEPHEN (acute kidney injury) Current Visit: Yes Status: Acute Assessment and plan: Patient presents with acutely elevated serum creatinine and decreased renal function. It improved somewhat overnight, but still remains elevated. Renal ultrasound was performed that showed mild chronic renal disease. One dose IV Lasix given this morning due to concerns of patient fluid status, will obtain renal function panel this afternoon before considering continued Lasix. Nephrology has been consulted, appreciate recommendations for continued management/care Avoid nephrotoxic agents if possible Strict I/Os (5) Diastolic CHF Current Visit: Yes Status: Acute Assessment and plan: Patient has history of diastolic congestive heart failure. She reports having started Lasix about one week ago, taking 40 mg orally daily. She does state that beginning about 3 weeks ago she began having lower extremity edema, currently at 2+. Bilateral rales on auscultation present. Given concerns for patient kidney status, will tentatively give 40 mg IV Lasix Obtain renal function panel in the afternoon to evaluate effect of Lasix on kidney function Qualifiers: Congestive heart failure chronicity: acute on chronic Qualified Code(s): I50.33 - Acute on chronic diastolic (congestive) heart failure (6) Severe mitral regurgitation Current Visit: Yes Status: Acute Assessment and plan: Severe mitral regurgitation with dilated left atria seen on echocardiogram performed yesterday. Cardiology is following, appreciate recommendations for team management/care Plan for left heart catheterization and subsequent LOBITO after resolution of patient heart rate and fluid status (7) DVT prophylaxis Current Visit: Yes Status: Acute Assessment and plan: Patient currently on heparin drip as treatment for bilateral DVTs in concern for ACS - Subjective Interval history: Patient seen and examined, resting comfortably with no supplemental oxygen needed. Patient denies any shortness of breath, but does report she has difficulty taking a full/deep breath. She also reports feeling tired/week recently but could be account of being in the hospital. Patient states that for the last couple weeks she has a have the same appetite and has not been eating as much. She had been on supplemental oxygen previously but was having nosebleeds and it was stopped. - Constitutional Vitals: Temp Pulse Resp BP Pulse Ox 97.6 F 106 18 100/70 94 02/26/17 07:34 02/26/17 10:45 02/26/17 10:45 02/26/17 10:45 02/26/17 07:34 General appearance: Present: A&O X 3, pleasant, no acute distress Exam: General: Cooperative, pleasant, no acute distress, alert and oriented 3, answers questions appropriately HEENT: Normocephalic, atraumatic, neck supple, trachea midline, Conjunctiva pink , sclera anicteric Respiratory: No accessory muscle usage, rales auscultated in bilateral lower and middle lung elise Cardiovascular: Tachycardic, irregularly irregular rhythm, S1 and S2 present, no murmurs/rubs/gallops/clicks appreciated GI/abdominal: Nondistended, nontender, soft, normal bowel sounds, no peritoneal signs Extremities: No calf tenderness, noncyanotic, 2+ lower extremity edema present, warm, lower extremity pulses palpable and symmetrical Neurological: Alert and oriented 3, no facial droop, no focal deficits Skin: Dry, intact, normal color Internal Medicine: Result - Labs CBC & Chem 7: 02/26/17 01:09 02/26/17 01:09 Labs: Short CBC 02/26/17 Range/Units 01:09 WBC 6.6 (4.3-11.1) K/mcL Hgb 9.3 L (11.5-15.4) g/dL Hct 29.1 L (35.3-44.9) % Plt Count 140 (140-400) K/mcL Neutrophils # 5.3 (1.6-8.9) K/mcL BMP 02/26/17 01:09 Sodium 135 L Potassium 3.4 L D Chloride 100 Carbon Dioxide 22 BUN 52 H Creatinine 1.62 H Glucose 117 H Calcium 8.6 Cardiac Enzymes 02/25/17 02/26/17 Range/Units 17:22 01:09 Troponin I 0.16 H* 0.15 H* (0-0.03) ng/mL Liver Function 02/26/17 02/26/17 Range/Units 01:09 11:19 Total Bilirubin 0.8 (0.2-1.2) mg/dL AST 38 H (5-34) Units/L ALT 58 H (0-55) Units/L Alkaline Phosphatase 149 H (38-126) Units/L Albumin 3.2 L 3.4 L (3.5-5.0) g/dL Urine 02/25/17 Range/Units 22:34 Urine Color Yellow (Yellow) Urine Clarity Clear (Clear) Urine pH 5.5 (5.0-8.0) pH Units Ur Specific [place] 1.018 (1.010-1.025) Urine Protein Trace (Neg-Trace) mg/dL Urine Glucose (UA) Normal (Normal) mg/dL - ABG Interpretation ABG results: PT/INR, D-dimer PT 14.3 Seconds (9.4-12.1) H 02/25/17 11:12 - Impressions Impressions Retroperitoneum Ultrasound 02/26/17 08:30 IMPRESSION: Findings compatible with mild chronic medical renal disease. No hydronephrosis or other acute process is seen involving either kidney. D/ / Lio Arnold MD / Lio Arnold MD Interpreting Provider: Lio Arnold MD Consult Discharge Plan - Plan Referrals: Kingsley Guerrero DO [Primary Care Provider] - 03/06/17 11:30 am <Mukesh Russell - Last Filed: 02/26/17 17:20> Date of Encounter: 02/26/17 - Constitutional Vitals: Temp Pulse Resp BP Pulse Ox 97.6 F 106 18 100/70 94 02/26/17 07:34 02/26/17 10:45 02/26/17 10:45 02/26/17 10:45 02/26/17 07:34 Internal Medicine: Result - Labs CBC & Chem 7: 02/26/17 01:09 02/26/17 01:09 Labs: Short CBC 02/26/17 Range/Units 01:09 WBC 6.6 (4.3-11.1) K/mcL Hgb 9.3 L (11.5-15.4) g/dL Hct 29.1 L (35.3-44.9) % Plt Count 140 (140-400) K/mcL Neutrophils # 5.3 (1.6-8.9) K/mcL BMP 02/26/17 01:09 Sodium 135 L Potassium 3.4 L D Chloride 100 Carbon Dioxide 22 BUN 52 H Creatinine 1.62 H Glucose 117 H Calcium 8.6 Cardiac Enzymes 02/25/17 02/26/17 Range/Units 17:22 01:09 Troponin I 0.16 H* 0.15 H* (0-0.03) ng/mL Liver Function 02/26/17 02/26/17 Range/Units 01:09 11:19 Total Bilirubin 0.8 (0.2-1.2) mg/dL AST 38 H (5-34) Units/L ALT 58 H (0-55) Units/L Alkaline Phosphatase 149 H (38-126) Units/L Albumin 3.2 L 3.4 L (3.5-5.0) g/dL Urine 02/25/17 Range/Units 22:34 Urine Color Yellow (Yellow) Urine Clarity Clear (Clear) Urine pH 5.5 (5.0-8.0) pH Units Ur Specific [place] 1.018 (1.010-1.025) Urine Protein Trace (Neg-Trace) mg/dL Urine Glucose (UA) Normal (Normal) mg/dL - ABG Interpretation ABG results: PT/INR, D-dimer PT 14.3 Seconds (9.4-12.1) H 02/25/17 11:12 - Impressions Impressions Retroperitoneum Ultrasound 02/26/17 08:30 IMPRESSION: Findings compatible with mild chronic medical renal disease. No hydronephrosis or other acute process is seen involving either kidney. D/ / Lio Arnold MD / Lio Arnold MD Interpreting Provider: Lio Arnold MD - Attending Attestation I examined this patient and my medical decision-making was reviewed with the SPINNER OPERATOR/PA/Advanced Practice Nurse/Resident Physician. I agree with the documented findings, disposition and treatment plan as described except to the extent set forth below. cardiology and renal input appreciated.
[2017-02-26] MEDS ORDERED: Melatonin 3 MG TABLET PO PRN (20:02)
--- NOTE | 2017-02-27 00:04 | Event Note ---
Date of Encounter: 02/26/17 Time of Encounter: 23:59 I was called as the patient as the patient had transient confusion On arrival, patient sitting in bed She reports back pain and some worsening shortness of breath Denies CP, cough or wheezing On exam, using accessory respiratory muscles Bilateral basal crepitations present 2-3+ bilateral pitting pedal edema A.Fib with RVR and tachycardia present Systolic murmur on auscultation A/P: 1. CHF - On lasix and got 40 mg at [address]. Will [address] on BIPAP. 2. Hypoxic resp. failure due to CHF 3. A.Fib - Got Toprol 12.5 mg at 1200. Will give a dose of lopressor now. If BP drops or patient still rate uncontrolled, will consider digoxin. Check BMP and troponin levels 4. Very low urine output - Bladder scan did not reveal anything. Willis for strict I/Os. Monitor renal function. If not worsening, will consider additional dose of lasix BP permitting. MARY Giron
[2017-02-27 01:14] LABS: Basophils % 0.4 %; Eosinophils % 0.3 %; Hematocrit 28.3 % (35.3-44.9); Hemoglobin 8.9 g/dL (11.5-15.4); Immature Granulocytes % 0.4 % (0-4); Lymphocytes # 0.6 K/mcL (0.6-4.6); Lymphocytes % 8.4 %; Mean Corpuscular HGB Conc 31.4 g/dL (31.6-35.5); Mean Corpuscular Hemoglobin 27.8 pg (28.0-33.3); Mean Corpuscular Volume 88.4 fL (83.0-100.0); Mean Platelet Volume 12.3 fL (9.4-12.4); Monocytes # 0.5 K/mcL (0.0-1.3); Monocytes % 6.7 %; Neutrophils # 6.2 K/mcL (1.6-8.9); Platelet Count 151 K/mcL (140-400); Red Cell Distribution Width 14.7 % (11.5-14.5); Segmented Neutrophils % 83.8 %
[2017-02-27 01:25] LABS: Albumin 3.5 g/dL (3.5-5.0); Albumin/Globulin Ratio 1.1 (1.1-2.2); Bilirubin,Total 0.7 mg/dL (0.2-1.2); Calcium 8.5 mg/dL (8.6-10.8); Globulin 3.1 g/dL (2.4-3.5); Magnesium 2.4 mg/dL (1.6-2.6); Potassium 3.9 mEq/L (3.5-4.5); Total Protein 6.6 g/dL (6.0-8.3)
[2017-02-27] MEDS: Metoprolol XL (24 HR) Succ 25 MG TAB.ER.24H PO SCH (07:55)
[2017-02-27] MEDS: Aspirin 81 MG TAB.CHEW PO SCH (07:55)
--- NOTE | 2017-02-27 10:35 | Cardiology Progress Note ---
Date of Encounter: 02/27/17 Time of Encounter: 08:30 Assessment and Plan (1) Atrial fibrillation with RVR Current Visit: Yes Status: Acute Per cardiology: -Out-pt EKG shows atrial fibrillation with RVR. HR 149 bpm. -New diagnosis. Reports palpitations over 1-2 weeks. -On beta ahmet. -Continue heparin for now until after possible procedures. -CHADS VASc=3. Will need to discuss coumadin further after LHC completed. Patient will need coumadin due to severe MR. -Telemetry reviewed with average HR 102, atrial fibrillation previous 12 hours. -BP 100s systolic. -Will continue to monitor. (2) Cardiac enzymes elevated Current Visit: Yes Status: Acute Per cardiology: -Mild troponin elevation at 0.19 in the setting of CHF and atrial fibrillation with RVR. -Troponins flat and adynamic 0.19, 0.16, 0.15 -Denies chest pain. -ECG with no ischemic changes. -Will plan for LHC when volume status and creatinine improve. (3) Diastolic CHF Current Visit: Yes Status: Acute Per cardiology; -Acute diastolic /valvular CHF. -Echocardiogram 01/27/17: LVEF 55%. Moderate LVH Abnormal diastolic function with severely elevated filling pressures. Normal right ventricular size and function. Severely dilated left atrium with elevated pressures (bowing of IAS to right). Severe wrap around eccentric mitral regurgitation. Mild aortic regurgitation. Moderate tricuspid regurgitation. Severe pulmonary hypertension. A pleural effusion is present. -CXR shows CHF. BNP 1447 on admission. -Fluid overload on exam. -Recieved IV lasix yesterday, was stopped this morning due to worsening creatinine. -Strict I&O and daily weight. -Low sodium diet. -Net negative 35ml this admisison. -Weight September noted to be 144.2 pounds. Current weight 164.1 pounds. - and I had a long discussion with daughter and recommend patient be transferred to [place]. Daughter agreeable and states that she was going to ask for transfer. Will discuss with at [place] to arrrange transfer. -Further recommendation pending bed availability at [place]. Qualifiers: Congestive heart failure chronicity: acute on chronic Qualified Code(s): I50.33 - Acute on chronic diastolic (congestive) heart failure (4) Severe mitral regurgitation Current Visit: Yes Status: Acute Per cardiology: -Echocardiogram 01/27/17: LVEF 55%. Moderate LVH Abnormal diastolic function with severely elevated filling pressures. Normal right ventricular size and function. Severely dilated left atrium with elevated pressures (bowing of IAS to right). Severe wrap around eccentric mitral regurgitation. Mild aortic regurgitation. Moderate tricuspid regurgitation. Severe pulmonary hypertension. A pleural effusion is present. -Plan for LHC and subsequent LOBITO once heart rate and fluid status improves for further evaluation. -Will attempt to transfer to [place] pending bed availability. (5) Deep vein thrombosis (DVT) of both lower extremities Current Visit: Yes Status: Acute Per cardiology: -Bilateral DVTs per venous duplex. -On heparin drip. -VQ with low probability for PE. -Will continue to monitor. Qualifiers: Affected thrombotic vein of extremity: femoral Chronicity: acute Qualified Code(s): I82.413 - Acute embolism and thrombosis of femoral vein, bilateral (6) STEPHEN (acute kidney injury) Current Visit: Yes Status: Acute Per cardiology: -Baseline creatinine 0.9-1. -Creatinine today 2.32. -Nephrology following. -Will plan for LHC when creatinine improves. -Managment per primary and nephrology services. -Will continue to monitor. Discussion w patient/family: The assessment and plan as outlined above was discussed with the patient and/or family members who expressed understanding and agreement. All questions were answered. Thank you for involving us in the care of your patient. Please call with any questions. Discussed and reviewed with . Subjective Principal diagnosis: atrial fibrillation with RVR Interval history: Sent from [facility] to the ER for new onset atrial fibrillation with RVR, HR 140, and CHF. Recent TTE completed showed severe wrap around eccentric mitral regurgiation. EF 55%. Initial work-up included chest x-ray that shows CHF. [id number], troponin 0.19. STEPHEN since 02/12/2017. She c/o SOB and BLE increasing over one week despite taking lasix at home. Admits to palpitations. Patient lethargic this morning. Daughter states breathing is not good today. Daughter states patient had confusion last night and was up all night. Objective Vital Signs, Last 4 Hours Temp Pulse Resp BP Pulse Ox 02/27/17 07:56 96.5 F L 103 16 102/45 96 General: No Apparent Distress, Other (Lethargic this morning. ) HEENT: Atraumatic, Normocephaly, Mucus Membranes Moist Neck: Normal carotid pulses, Other (JVD noted. ) Cardiac: Other (Irregularly, irregular. Systolic murmur noted. ) Lungs: Normal Breath Sounds, No Wheeze, Rales, Rhonchi Neuro: Other (Lethargic. Arouses to tactile stimuli. ) Abdomen: Soft, Non-Tender Skin: No rashes noted on visualized skin Musculoskeletal: No Chest Wall Tenderness Extremities: No Clubbing, No Cyanosis, Normal Pulses, Other (3+ bilateral lower extremity pitting edema. ) Results 02/27/17 00:45 02/27/17 00:45 Lab Results Impressions Pulmonary Perfusion Imaging 02/26/17 12:23 IMPRESSION: Low Probability for Pulmonary Embolus. D/ / Vazquez Rae MD / Vazquez Rae MD Interpreting Provider: Vazquez Rae MD Active Medications Acetaminophen (Tylenol) 650 mg PO Q6HR PRN PRN Reason: Mild Pain (1-3) Stop: 08/27/17 12:42 Aspirin (Aspirin) 81 mg PO DAILY ASHER Stop: 08/28/17 09:01 Last Admin: 02/27/17 07:55 Dose: 81 mg Heparin Sodium (Porcine) (Heparin) 4,700 unit 70 unit/kg (4700 unit) IVP Q6HR PRN PRN Reason: SEE COMMENTS Stop: 08/27/17 11:08 Heparin Sodium (Porcine) (Heparin) 2,300 unit 35 unit/kg (2300 unit) IVP Q6HR PRN PRN Reason: SEE COMMENTS Stop: 08/27/17 11:08 Heparin Sodium/Dextrose (Heparin 25,000 Unit/500 Ml D5w) 25,000 unit in 500 mls @ 18.67 mls/hr IVC .Q24H ASHER; 14 UNIT/KG/HR PRN Reason: Protocol Stop: 08/27/17 11:16 Last Admin: 02/26/17 12:22 Dose: 14 unit/kg/hr, 18.67 mls/hr Melatonin (Melatonin) 3 mg PO HS PRN PRN Reason: Insomnia Stop: 08/28/17 20:03 Last Admin: 02/27/17 00:32 Dose: 3 mg Metoprolol Succinate (Toprol Xl) 12.5 mg PO DAILY ASHER Stop: 08/28/17 12:01 Last Admin: 02/27/17 07:55 Dose: 12.5 mg Naloxone HCl (Narcan) 0.4 mg IVP Q2MIN PRN PRN Reason: Opioid Reversal Stop: 08/27/17 12:42 Potassium Chloride (Potassium Chloride) 20 meq PO DAILY ASHER Stop: 08/28/17 12:31 Last Admin: 02/27/17 07:55 Dose: 20 meq Rosuvastatin Calcium (Crestor) 40 mg PO HS ASHER Stop: 08/27/17 21:01 Last Admin: 02/26/17 21:22 Dose: 40 mg Laboratory Tests 10/09/15 09/15/16 02/25/17 13:03 11:53 11:12 Hgb 10.3 L Potassium Creatinine 1.00 1.02 Magnesium B-Natriuretic Peptide TSH 02/25/17 02/25/17 02/26/17 11:12 11:19 01:09 Hgb Potassium Creatinine 1.62 H Magnesium B-Natriuretic Peptide 1474 H TSH 4.151 02/26/17 02/27/17 02/27/17 15:06 00:45 00:45 Hgb 8.9 L Potassium 3.9 Creatinine 2.32 H Magnesium 2.4 B-Natriuretic Peptide 837 H TSH - Imaging and Cardiology Chest Xray: report reviewed Echo: report reviewed - EKG Interpretation EKG results cardiology: other (Telemetry reviewed with average HR 102, atrial fibrillation. PVC, couplets, and one triplet PVC noted.) Consult Discharge Plan - Plan Referrals: Kingsley Guerrero DO [Primary Care Provider] - 03/06/17 11:30 am
[2017-02-27 11:45] VITALS: BP 103/55
--- NOTE | 2017-02-27 12:05 | Internal Med Progress Note ---
<Nasim Jackson - Last Filed: 02/27/17 12:01> Date of Encounter: 02/27/17 Time of Encounter: 08:40 - Assessment and plan (1) Atrial fibrillation with RVR Current Visit: Yes Status: Acute Assessment and plan: Patient sent to the hospital by her international marketing specialist due to the finding of A. fib with RVR with heart rate in the 140s. Is a new diagnosis of atrial fibrillation , the patient reports having some palpitations prior to presentation. She was started on Cardizem and heparin drips in the emergency room. Diltiazem drip stopped yesterday, patient continued on 12.5 mg metoprolol succinate daily. Heart rate has been in the mid to high 90s. Train Reservation Clerk consulted, appreciate recommendations for continued management/Care Diltiazem drip stopped due to concerns of patient continued hypotension, patient placed on 12.5 mg metoprolol succinate daily Continue heparin drip Due to concerns of mitral regurgitation causing valvular atrial fibrillation, patient will need Coumadin long-term continue modification to cardiac telemetry (2) Cardiac enzymes elevated Current Visit: Yes Status: Acute Assessment and plan: Patient presents with mildly elevated troponins at presentation. 0.19, 0.16, 0.15 since admission in the setting of A. fib with RVR and CHF. Troponin remained adynamic and likely source from other processes. Patient is chest pain -free and no ischemic changes seen on EKG. Cardiology is consulted to assist with A. fib with RVR as well as evaluate for elevated troponins Cardiac catheterization currently on hold due to concerns of patient renal function (3) Deep vein thrombosis (DVT) of both lower extremities Current Visit: Yes Status: Acute Assessment and plan: Bilateral DVTs observed on venous Doppler lower extremities. Patient on heparin drip currently, unable to evaluate for potential PE due to concerns of patient inability to lie down and decreased renal function preventing CT with contrast. Continue heparin drip Patient will need long-term anticoagulation as outpatient, Coumadin given patient likely valvular atrial fibrillation We will further evaluate for pulmonary embolism when patient is a full to tolerate exams Qualifiers: Affected thrombotic vein of extremity: femoral Chronicity: acute Qualified Code(s): I82.413 - Acute embolism and thrombosis of femoral vein, bilateral (4) STEPHEN (acute kidney injury) Current Visit: Yes Status: Acute Assessment and plan: Patient presents with acutely elevated serum creatinine and decreased renal function. Patient renal function worsened since yesterday with a serum creatinine at 2.3-2 day as well as estimate GFR of 25. Renal ultrasound was performed that showed mild chronic renal disease. One dose IV Lasix given this morning due to concerns of patient fluid status, will obtain renal function panel this afternoon before considering continued Lasix. Nephrology has been consulted, appreciate recommendations for continued management/care Avoid nephrotoxic agents if possible Strict I/Os (5) Diastolic CHF Current Visit: Yes Status: Acute Assessment and plan: Patient has history of diastolic congestive heart failure. She reports having started Lasix about one week ago, taking 40 mg orally daily. She does state that beginning about 3 weeks ago she began having lower extremity edema, currently at 2+. Bilateral rales on auscultation present. Given concerns for patient kidney status, Lasix has been held after one-time dose yesterday We will continue to monitor closely Obtained chest x-ray Qualifiers: Congestive heart failure chronicity: acute on chronic Qualified Code(s): I50.33 - Acute on chronic diastolic (congestive) heart failure (6) Severe mitral regurgitation Current Visit: Yes Status: Acute Assessment and plan: Severe mitral regurgitation with dilated left atria seen on echocardiogram performed yesterday. Cardiology is following, appreciate recommendations for team management/care Plan for left heart catheterization and subsequent LOBITO after resolution of patient heart rate and fluid status (7) DVT prophylaxis Current Visit: Yes Status: Acute Assessment and plan: Patient currently on heparin drip as treatment for bilateral DVTs and concern for ACS (8) UTI (urinary tract infection) Current Visit: Yes Status: Acute Assessment and plan: Patient found to have gram negative rods in her urine, and increased somnolence. This could represent colonization or acute cystitis. We will start IV ceftriaxone Continue to monitor Qualifiers: Urinary tract infection type: site unspecified Hematuria presence: without hematuria Qualified Code(s): N39.0 - Urinary tract infection, site not specified - Subjective Interval history: Patient had episode of hypoxia last night requiring BiPAP, followed by need of nasal cannula in order to maintain oxygen saturations. She also was noted to have little urine production, bladder scan did not show much urine in the bladder and Willis was placed. When seen this morning patient appears comfortable, sleeping with increased fatigue after not getting much rest last night, with nasal cannula in place. She is comfortable and rouses easily to verbal stimuli. Although she required BiPAP last night and continues a nasal cannula, she denies having any shortness of breath currently. She denies chest pain, nausea/vomiting, fever/chills, or abdominal pain. - Constitutional Vitals: Temp Pulse Resp BP Pulse Ox 96.8 F L 92 18 103/55 98 02/27/17 11:39 02/27/17 11:39 02/27/17 11:39 02/27/17 11:39 02/27/17 11:39 General appearance: Present: A&O X 3, pleasant, no acute distress Exam: General: Cooperative, pleasant, no acute distress, alert and oriented 3, answers questions appropriately HEENT: Normocephalic, atraumatic, neck supple, trachea midline, Conjunctiva pink , sclera anicteric Respiratory: No accessory muscle usage, rales auscultated in bilateral lower and middle lung elise Cardiovascular: Tachycardic, irregularly irregular rhythm, S1 and S2 present, no murmurs/rubs/gallops/clicks appreciated GI/abdominal: Nondistended, nontender, soft, normal bowel sounds, no peritoneal signs Extremities: No calf tenderness, noncyanotic, 2+ lower extremity edema present, warm, lower extremity pulses palpable and symmetrical Neurological: Alert and oriented 3, no facial droop, no focal deficits Skin: Dry, intact, normal color Internal Medicine: Result - Labs CBC & Chem 7: 02/27/17 00:45 02/27/17 00:45 Labs: Short CBC 02/27/17 Range/Units 00:45 WBC 7.4 (4.3-11.1) K/mcL Hgb 8.9 L (11.5-15.4) g/dL Hct 28.3 L (35.3-44.9) % Plt Count 151 (140-400) K/mcL Neutrophils # 6.2 (1.6-8.9) K/mcL BMP 02/27/17 00:45 Sodium 132 L Potassium 3.9 Chloride 98 Carbon Dioxide 21 BUN 59 H Creatinine 2.32 H Glucose 130 H Calcium 8.5 L Cardiac Enzymes 02/27/17 Range/Units 00:45 Troponin I 0.12 H* (0-0.03) ng/mL Liver Function 02/26/17 02/27/17 Range/Units 11:19 00:45 Total Bilirubin 0.7 (0.2-1.2) mg/dL AST 28 (5-34) Units/L ALT 49 (0-55) Units/L Alkaline Phosphatase 141 H (38-126) Units/L Albumin 3.4 L 3.5 (3.5-5.0) g/dL - ABG Interpretation ABG results: PT/INR, D-dimer PT 14.3 Seconds (9.4-12.1) H 02/25/17 11:12 - Impressions Impressions Pulmonary Perfusion Imaging 02/26/17 12:23 IMPRESSION: Low Probability for Pulmonary Embolus. D/ / Vazquez Rae MD / Vazquez Rae MD Interpreting Provider: Vazquez Rae MD Consult Discharge Plan - Plan Referrals: Kingsley Guerrero DO [Primary Care Provider] - 03/06/17 11:30 am <Mukesh Russell - Last Filed: 02/27/17 16:17> Date of Encounter: 02/27/17 - Constitutional Vitals: Temp Pulse Resp BP Pulse Ox 96.8 F L 92 18 103/55 98 02/27/17 11:39 02/27/17 11:39 02/27/17 11:39 02/27/17 11:39 02/27/17 11:39 Internal Medicine: Result - Labs CBC & Chem 7: 02/27/17 00:45 02/27/17 00:45 Labs: Short CBC 02/27/17 Range/Units 00:45 WBC 7.4 (4.3-11.1) K/mcL Hgb 8.9 L (11.5-15.4) g/dL Hct 28.3 L (35.3-44.9) % Plt Count 151 (140-400) K/mcL Neutrophils # 6.2 (1.6-8.9) K/mcL BMP 02/27/17 00:45 Sodium 132 L Potassium 3.9 Chloride 98 Carbon Dioxide 21 BUN 59 H Creatinine 2.32 H Glucose 130 H Calcium 8.5 L Cardiac Enzymes 02/27/17 Range/Units 00:45 Troponin I 0.12 H* (0-0.03) ng/mL Liver Function 02/27/17 Range/Units 00:45 Total Bilirubin 0.7 (0.2-1.2) mg/dL AST 28 (5-34) Units/L ALT 49 (0-55) Units/L Alkaline Phosphatase 141 H (38-126) Units/L Albumin 3.5 (3.5-5.0) g/dL - ABG Interpretation ABG results: PT/INR, D-dimer PT 14.3 Seconds (9.4-12.1) H 02/25/17 11:12 - Impressions Impressions Pulmonary Perfusion Imaging 02/26/17 12:23 IMPRESSION: Low Probability for Pulmonary Embolus. D/ / Vazquez Rae MD / Vazquez Rae MD Interpreting Provider: Vazquez Rae MD - Attending Attestation I examined this patient and my medical decision-making was reviewed with the SHRIMP BOAT CAPTAIN/PA/Advanced Practice Nurse/Resident Physician. I agree with the documented findings, disposition and treatment plan as described except to the extent set forth below. Tx to tertiary [facility].
[2017-02-27] MEDS: Heparin 25,000 UNIT/500 ML D5W 25,000 UNIT/500 ML MLS IVC SCH (13:20)
--- NOTE | 2017-02-27 14:29 | Discharge Summary ---
<Nasim Jackson - Last Filed: 02/27/17 15:53> Date of Encounter: 02/27/17 Time of Encounter: 08:40 - Discharge Diagnosis (1) Atrial fibrillation with RVR Priority: Primary Status: Acute (2) Cardiac enzymes elevated Priority: Primary Status: Acute (3) Deep vein thrombosis (DVT) of both lower extremities Priority: Primary Status: Acute Qualifiers: Affected thrombotic vein of extremity: femoral Chronicity: acute Qualified Code(s): I82.413 - Acute embolism and thrombosis of femoral vein, bilateral (4) STEPHEN (acute kidney injury) Priority: Primary Status: Acute (5) Diastolic CHF Priority: Primary Status: Acute Qualifiers: Congestive heart failure chronicity: acute on chronic Qualified Code(s): I50.33 - Acute on chronic diastolic (congestive) heart failure (6) Severe mitral regurgitation Priority: Primary Status: Acute (7) DVT prophylaxis Priority: Secondary Status: Acute (8) UTI (urinary tract infection) Priority: Primary Status: Acute Qualifiers: Urinary tract infection type: site unspecified Hematuria presence: without hematuria Qualified Code(s): N39.0 - Urinary tract infection, site not specified - Discharge Medications Home Medications: Aspirin 81 mg PO DAILY 02/25/17 [History] Furosemide [Lasix] 40 mg PO DAILY 02/25/17 [History] Potassium Chloride [Klor-Con 10] 10 meq PO DAILY 02/25/17 [History] Ramipril [Altace] 10 mg PO QPM 02/25/17 [History] Ramipril [Altace] 20 mg PO QAM 02/25/17 [History] Rosuvastatin [Crestor] 40 mg PO HS 02/25/17 [History] Allergies/Adverse Reactions: Allergies amlodipine [From Norvasc] Adverse Reaction (Verified 02/25/17 10:58) See Comments swelling/leg cramps ezetimibe [From Zetia] Adverse Reaction (Verified 02/25/17 10:58) See Comments swelling/leg cramps Procedures/tests Complete & Pending: Procedures Performed prior 72 hours Category Date Time Status VQ Scan [NM pul vent and perfuse] [NM] Routine Exams 02/26/17 12:23 Completed Venous Doppler [EV venous imaging LE BI] Stat Y 02/25/17 13:32 Completed Date of admission: 02/25/17 12:55 Primary care physician: Kingsley Guerrero DO Consults: 02/25/17 13:10 Consult to Nephrology [CONS] Routine Consulting Provider: Kidney Stella/TRACEY/TAMIA/ISRAEL Reason for Consult: new STEPHEN Call Completed: Yes Discharging clinician: Nasim Jackson Anticipated date of discharge: 02/27/17 - Patient Status Disposition: Transfer Other Condition: Critical Functional capacity at discharge: bed bound Overall status at discharge: patient is not back to baseline - Discharge Instructions Follow Up With: Kingsley Guerrero DO [Primary Care Provider] - 03/06/17 11:30 am - Diet and Activity Activity: as per physical therapy, wear oxygen at all times Diet: low fat, low cholesterol, low salt diet Interval History: Patient had episode of hypoxia last night requiring BiPAP, followed by need of nasal cannula in order to maintain oxygen saturations. She also was noted to have little urine production, bladder scan did not show much urine in the bladder and Willis was placed. When seen this morning patient appears comfortable, sleeping with increased fatigue after not getting much rest last night, with nasal cannula in place. She is comfortable and rouses easily to verbal stimuli. Although she required BiPAP last night and continues a nasal cannula, she denies having any shortness of breath currently. She denies chest pain, nausea/vomiting, fever/chills, or abdominal pain. Hospital course: Ms. Lazo is a 76 year old female with prior medical history of hypertension, hyperlipidemia, diastolic heart failure who was sent to [facility] from her peer educator's office due to finding of A. fib with RVR on 02/05/17. She was started on a Cardizem and heparin drip at the time of admission with further workup pending. With her A. fib with RVR she was also found to have severe mitral regurgitation, severe pulmonary hypertension, diastolic CHF (from not taking her Lasix for the past week), and elevation in her troponins (0.19 that trended down to 0.12 over 24 hours), bilateral DVTs in her common femoral veins , and acute renal insufficiency. She was seen by the peer educator, Dr. Rondon, and patient was continued on a Cardizem and heparin drips with plan for a left heart catheterization, unfortunately left heart catheter could not be performed until the patient's renal status was stabilized. Nephrology was consulted to assist in management of patient's acute kidney injury. She was given 1 time dose of 40 mg Lasix because of apparent volume overload with peripheral edema and pleural effusions. Unfortunately this seemed to worsen her acute kidney injury as she might of been intravascularly depleted from third spacing of fluids. With the worsening of patient's function and continued multiple cardiac and vascular complications. It was decided after discussion with the peer educator and member service representative that the patient be better served closer care with the Structural Heart Team at [facility]. Dr. Rondon discussed the case with Dr. Tobi Irvin who agreed to accept the patient as a transfer to [place]. The options were discussed with the patient and her family may agreed with this plan of action. - Time Spent with Patient Total time spent providing and/or coordinating discharge services: - Constitutional Vitals: Temp Pulse Resp BP Pulse Ox 96.8 F L 92 18 103/55 98 02/27/17 11:39 02/27/17 11:39 02/27/17 11:39 02/27/17 11:39 02/27/17 11:39 General appearance: Present: A&O X 3, pleasant, no acute distress Exam: General: Cooperative, pleasant, no acute distress, alert and oriented 3, answers questions appropriately HEENT: Normocephalic, atraumatic, neck supple, trachea midline, Conjunctiva pink , sclera anicteric Respiratory: No accessory muscle usage, rales auscultated in bilateral lower and middle lung elise Cardiovascular: Tachycardic, irregularly irregular rhythm, S1 and S2 present, 2/ 6 systolic murmur heard best at the apex GI/abdominal: Nondistended, nontender, soft, normal bowel sounds, no peritoneal signs Extremities: No calf tenderness, noncyanotic, 2+ lower extremity edema present, warm, lower extremity pulses palpable and symmetrical Neurological: Alert and oriented 3, no facial droop, no focal deficits Skin: Dry, intact, normal color <Mukesh Russell P - Last Filed: 02/27/17 16:17> Date of Encounter: 02/27/17 Procedures/tests Complete & Pending: Procedures Performed prior 72 hours Category Date Time Status VQ Scan [NM pul vent and perfuse] [NM] Routine Exams 02/26/17 12:23 Completed Venous Doppler [EV venous imaging LE BI] Stat Y 02/25/17 13:32 Completed Date of admission: 02/25/17 12:55 Primary care physician: Kingsley Guerrero DO Consults: 02/25/17 13:10 Consult to Nephrology [CONS] Routine Consulting Provider: Mika Douglas/TRACEY/TAMIA/ISRAEL Reason for Consult: new STEPHEN Call Completed: Yes Hospital course: Ms. Lazo is a 76 year old female - Time Spent with Patient Total time spent providing and/or coordinating discharge services: - Constitutional Vitals: Temp Pulse Resp BP Pulse Ox 96.8 F L 92 18 103/55 98 02/27/17 11:39 02/27/17 11:39 02/27/17 11:39 02/27/17 11:39 02/27/17 11:39 - Attending Attestation I examined this patient and my medical decision-making was reviewed with the COMPANY PILOT/PA/Advanced Practice Nurse/Resident Physician. I agree with the documented findings, disposition and treatment plan as described except to the extent set forth below.
--- NOTE | 2017-02-27 16:34 | Nephrology Progress Note ---
Date of Encounter: 02/27/17 Time of Encounter: 16:32 - Assessment and Plan (1) STEPHEN (acute kidney injury) Current Visit: Yes Status: Acute Multifactorial STEPHEN. Patient now has oliguric STEPHEN. Etiology may be prerenal azotemia/ATN from hypoperfusion from decreased cardiac output and/or intravascular depletion. She did not respond to albumin lasix combination overnight. With worsening creatinine consider gentle hydration as she may be preload dependent (she denies worsening dyspnea and her blood pressure is lower than normal for her) given pulmonary hypertension. At this time she does not need renal replacement therapy, but she may soon if her renal function does not recover. At this time we are anticipating she will be transferred to a tertiary care center. (2) Essential hypertension Current Visit: Yes Status: Acute blood pressure on the low side. May be intravascular dry. (3) Severe mitral regurgitation Current Visit: Yes Status: Acute per cardiology. (4) UTI (urinary tract infection) Current Visit: Yes Status: Acute per primary team. Qualifiers: Urinary tract infection type: site unspecified Hematuria presence: without hematuria Qualified Code(s): N39.0 - Urinary tract infection, site not specified Subjective Principal diagnosis: atrial fibrillation with RVR Interval history: Patient and daughter in the room. Patient reports that she feels stable and that her "dyspnea" is baseline. She denies increased dyspnea overnight and that her confusion was secondary to being awakened suddenly. Objective - Vital Signs Vital signs: Vital Signs Temp Pulse Resp BP Pulse Ox 02/27/17 11:39 96.8 F L 92 18 103/55 98 02/27/17 07:56 96.5 F L 103 16 102/45 96 02/27/17 06:26 99 20 100/63 97 02/27/17 03:45 97.6 F 93 14 105/82 97 02/27/17 01:07 122 22 103/86 98 02/26/17 23:36 97.6 F 91 15 103/80 98 02/26/17 20:50 97.6 F 84 16 96/76 91 02/26/17 20:35 97 Intake and Output 02/27/17 02/27/17 02/27/17 07:59 15:59 23:59 Intake Total 0 / 0 740 / 740 Output Total 0 / 0 200 / 200 Balance 0 / 0 540 / 540 Intake: IV Fluids 500 / 500 Heparin 25,000 UNIT/500 500 / 500 ML D5W 25,000 unit In 500 ml @ 14 UNIT/KG/HR 18.67 mls/hr IVC .Q[facility]H [facility] Rx# :[id number] Oral 0 / 0 240 / 240 Output: Urine 0 / 0 Catheter 200 / 200 Other: Meal Lunch Percent of Meal Consumed 40% Weight 74.6 kg 70 kg Blood Glucose* 133 121 Patient Weight 02/27/17 23:59 Weight 70 kg - General Appearance General appearance: Present: well-developed, well-nourished EENT: Present: ATNC Neck: Present: no carotid bruit Additional Comments: faint crackles in the bilateral bases. Cardiology: Present: regular rate, irregular rhythm Gastrointestinal: Present: no tenderness Integumentary: Present: warm and dry Neurologic: Present: alert and oriented x3 Musculoskeletal: Present: no cyanosis Psychiatric: Present: mood/affect appropriate - Lab 02/27/17 00:45 02/27/17 00:45 Most recent lab results Calcium 8.5 mg/dL (8.6-10.8) L 02/27/17 00:45 Magnesium 2.4 mg/dL (1.6-2.6) 02/27/17 00:45 Consult Discharge Plan - Plan Referrals: Kingsley Guerrero DO [Primary Care Provider] - 03/06/17 11:30 am
== END 2017-02-27 14:30 | disposition other institution (70) | DRG 308 ==
LOC: EMEROO 10:50 → 2NENU 10:50
PROVIDERS: ADMIT Internal Medicine; ATTEND Internal Medicine